=== PATIENT | male | born 1990 | race Caucasian/White ===

== ENCOUNTER 2016-10-30 05:32 | Emergency (ER) | payer OTHER ==
[~2016-10-30] VITALS: Ht 182.9 cm; Wt 122.5 kg
[2016-10-30 05:36] VITALS: Ht 182.9 cm; Wt 122.5 kg
[2016-10-30] MEDS ORDERED: ONDANSETRON 4 MG INJ IV STA ×2 (05:43→08:10)
[2016-10-30] MEDS ORDERED: morphine 4 MG/ML VIAL IV STA (05:43)
[2016-10-30 06:02] LABS: BASOPHILS % 0.4 % (0.0-2.0); EOSINOPHILS # 0.2 10^3/ul (0.0-0.5); EOSINOPHILS % 1.5 % (0.0-7.0); HEMATOCRIT 44.3 % (42.0-52.0); HEMOGLOBIN 15.1 g/dl (14.0-18.0); LYMPHOCYTES # 1.6 10^3/ul (0.8-2.9); LYMPHOCYTES % 15.3 % (15.0-51.0); MEAN CORPUSCULAR HEMOGLOBIN 28.5 pg (29.0-33.0); MEAN CORPUSCULAR HGB CONC 34.1 g/dl (32.0-37.0); MEAN CORPUSCULAR VOLUME 83.5 fl (82.0-101.0); MEAN PLATELET VOLUME 10.1 fl (7.4-10.4); MONOCYTE # 0.5 10^3/ul (0.3-0.9); NEUTROPHILS % 77.8 % (39.0-77.0); PLATELET COUNT 193 10^3/UL (140-440); RED CELL DISTRIBUTION WIDTH 13.8 % (11.5-14.5); UNCORRECTED WBC 10.2 10^3/ul (4.8-10.8); WHITE BLOOD COUNT 10.2 10^3/ul (4.8-10.8)
[2016-10-30 06:09] LABS: CONDITION 1
[2016-10-30 06:11] LABS: ALBUMIN 4.6 g/dl (3.3-4.9)
[2016-10-30 06:12] LABS: POTASSIUM 4.3 mmol/L (3.5-5.1)
[2016-10-30 06:14] LABS: ALBUMIN/GLOBULIN RATIO 0.95; BILIRUBIN,INDIRECT 0.2 mg/dl (0-1.1); BILIRUBIN,TOTAL 0.2 mg/dl (0.2-1.3); CALCIUM 9.5 mg/dl (8.4-10.2); CREATININE 0.89 mg/dl (0.61-1.24); TOTAL PROTEIN 9.4 g/dl (6.1-8.1)
[2016-10-30] MEDS ORDERED: SOD CHLORIDE 0.9% 500 ML IV ONE (06:17)
[2016-10-30] MEDS ORDERED: KETOROLAC 30 MG INJ IV ONE (06:22)
--- NOTE | 2016-10-30 06:28 | ERD ---
ER Documentation Chief Complaint Date/Time DATE: 10/30/16 TIME: 06:23 Chief Complaint upper abd pain radaiting to back since 4 hours ago HPI This is a 26-year-old male that presents to the emergency department complaining of a sudden onset of right flank pain that began 6 hours prior to arrival. The patient stated he was sleeping when he awoke at 1 AM and developed a sharp stabbing pain in the right flank region. He indicates that the pain did not radiate to the right lower quadrant but did begin to radiate to the right upper quadrant. He felt nauseous but did not experience any emesis. He states the pain was 10 out of 10 in intensity. He took 500 mg of Tylenol with no improvement of his pain. He denies any gross hematuria and no frequency urgency or dysuria. He has never had any similar pain in the past denies any recent remote blunt or penetrating abdominal wall trauma. He denies a headache. He has had no fever shaking or chills. He denies any chest pain or pressure that radiates to the neck arm back or jaw. He denies any constipation or diarrhea ROS All systems reviewed and are negative except as per history of present illness. Medications Home Meds Active Scripts Tamsulosin Hcl* (Flomax*) 0.4 Mg Cap.er.24h, 0.4 MG PO BID, #10 CAP Prov:GEETHA TRAN 10/30/16 Hydrocodone/Acetaminophen ([place] 5-325 Tablet) 1 Each Tablet, 1 EACH PO Q6, #20 TAB Prov:GEEHTA TRAN 10/30/16 Ibuprofen* (Motrin*) 800 Mg Tab, 800 MG PO Q6H Y for PAIN AND OR ELEVATED TEMP, #30 TAB Prov:GEETHA TRAN 10/30/16 Ciprofloxacin Hcl* (Ciprofloxacin Hcl*) 500 Mg Tablet, 500 MG PO BID for 7 Days , TAB Prov:GEETHA TRAN 10/30/16 Allergies Allergies: Coded Allergies: No Known Allergy (Unverified , 10/30/16) PMhx/Soc Medical and Surgical Hx: pt denies Medical Hx, pt denies Surgical Hx Hx Alcohol Use: Yes (sometimes) Hx Substance Use: No Hx Tobacco Use: Yes (sometimes) Smoking Status: Current some day smoker Physical Exam Vitals Vital Signs Date Time Temp Pulse Resp B/P Pulse Ox O2 Delivery O2 Flow Rate FiO2 10/30/16 06:50 98.2 73 16 128/81 96 Room Air 10/30/16 05:36 98.3 83 20 156/72 98 Physical Exam Constitutional:Well-developed. Well-nourished. HEENT:Normocephalic. Atraumatic.Pupils were equal round reactive to light. Moist mucous membranes.No tonsillar exudates. Neck: No nuchal rigidity. No lymphadenopathy. No posterior cervical spine tenderness or step-offs. Respiratory: Not using accessory muscles of respiration.Lungs were clear to auscultation bilaterally. No rhonchi. No rales. No wheezing. Cardiovascular: Regular rate regular rhythm.No murmurs. No rubs were appreciated.S1, S2 normal. Distal pulses are palpable 2+ bilaterally. GI: Abdomen was soft. Right CVA tenderness with no tenderness in the right lower quadrant over McBurney's point. Psoas sign negative. Obturator sign negative. Negative Fairbanks sign as there is no reproducible tenderness in the right upper quadrant. Non Distended. No pulsatile abdominal masses or bruits. No rebound. No guarding. Bowel sounds were present and normal. Muscle skeletal: Full range of motion of both the upper and lower extremities bilaterally.Normal muscle tone.No assymetrical calf tenderness or swelling. Skin: No petechia, no purpura. No lesions on the palms or the soles of the feet. No maculopapular rash. NEURO: Patient was alert, awake, orientated x3.No facial droop. Gait observed and normal with no ataxia.Speech had regular rate and rhythm. No focal neurological deficits. Result Diagram: 10/30/1643 10/30/1643 Results 24 hrs Laboratory Tests Test 10/30/16 05:43 Alanine Aminotransferase (ALT/SGPT) 223IU/L Albumin 4.6g/dl Albumin/Globulin Ratio 0.95 Alkaline Phosphatase 100IU/L Anion Gap 17 Aspartate Amino Transf (AST/SGOT) 101IU/L Basophils # 0.010^3/ul Basophils % 0.4% Blood Morphology Comment Blood Urea Nitrogen 8mg/dl Calcium Level 9.5mg/dl Carbon Dioxide Level 29mmol/L Chloride Level 102mmol/L Creatinine 0.89mg/dl Direct Bilirubin 0.00mg/dl Eosinophils # 0.210^3/ul Eosinophils % 1.5% Globulin 4.80g/dl Glucose Level 136mg/dl Hematocrit 44.3% Hemoglobin 15.1g/dl Indirect Bilirubin 0.2mg/dl Lipase 82U/L Lymphocytes # 1.610^3/ul Lymphocytes % 15.3% Mean Corpuscular Hemoglobin 28.5pg Mean Corpuscular Hemoglobin Concent 34.1g/dl Mean Corpuscular Volume 83.5fl Mean Platelet Volume 10.1fl Monocytes # 0.510^3/ul Monocytes % 5.0% Neutrophils # 8.010^3/ul Neutrophils % 77.8% Nucleated Red Blood Cells # 0.010^3/ul Nucleated Red Blood Cells % 0.0/100WBC Platelet Count 43151^3/UL Potassium Level 4.3mmol/L Red Blood Count 5.3010^6/ul Red Cell Distribution Width 13.8% Sodium Level 144mmol/L Total Bilirubin 0.2mg/dl Total Protein 9.4g/dl White Blood Count 10.210^3/ul Current Medications Medications (Trade) Dose Ordered Sig/Dean Route PRN Reason Start Time Stop Time Status Last Admin Dose Admin Morphine Sulfate (morphine) 4 mg ONCE STAT IV 10/30/16 05:43 10/30/16 05:44 DC 10/30/16 05:46 Ondansetron HCl 4 mg 4 mg ONCE STAT IV 10/30/16 05:43 10/30/16 05:44 DC 10/30/16 05:46 Sodium Chloride (NS) 500 ml @ 500 mls/hr Q1H ONCE IV 10/30/16 06:17 10/30/16 07:16 DC 10/30/16 06:45 Ketorolac Tromethamine (Toradol) 30 mg ONCE ONCE IV 10/30/16 06:22 10/30/16 06:23 DC Hydromorphone HCl (Dilaudid) 1 mg ONCE STAT IV 10/30/16 08:10 10/30/16 08:11 DC Ondansetron HCl (Zofran Inj) 4 mg ONCE STAT IV 10/30/16 08:10 10/30/16 08:11 DC Tamsulosin HCl (Flomax) 0.4 mg ONCE ONCE PO 10/30/16 08:30 10/30/16 08:31 Procedures/MDM This patient presented to the emergency department with abdominal pain and right flank pain. He was seen and evaluated by myself. My differential diagnosis included but was not limited to abdominal aortic aneurysm, appendicitis, pancreatitis, perforated peptic ulcer, perforated viscus, Boerhaaves syndrome or visceral pain such as diverticulitis, DKA, esophagitis, hepatitis or bowel obstruction. 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 The patient received intravenous morphine Toradol Zofran as well as a liter bolus of 0.9 normal saline. His pain is completely resolved at this time. I obtained a CT scan of the abdomen without contrast and the patient had a 2 mm kidney stone present on the right side. There is no evidence of obstructive uropathy. The patient's pain is completely resolved after receiving opiate analgesics Flomax and IV fluids. The patient felt comfortable being discharged home with analgesic medication and prophylactic antibiotics which included ciprofloxacin. The patient was discharged home in fair condition. They were instructed to return to the emergency department at any time if there was any worsening of their condition. The patient stated they would follow up with their PCP in the next 24-48 hours to initiate a suitable medication regimen under the care of their PCP as well as to allow their PCP to monitor any drug reactions. The patient was discharged home with prescriptions after they gave informed consent to the new medication. They were also fully informed by myself on the adverse effects and adverse drug interactions in order to provide adequate safeguards to prevent possible adverse reactions to medications. Departure Diagnosis: Primary Impression: Nephrolithiasis Condition: Marian TRANGEETHA Oct 30, 2016 06:27
--- NOTE | 2016-10-30 07:50 | RADRPT ---
PROCEDURE: CT of the abdomen and pelvis without contrast CLINICAL INDICATION: Abdominal Pain. TECHNIQUE: Spiral CT images through the abdomen and pelvis without the use of contrast. The admin istered radiation dose is CTDI 23.21 and DLP 1640.89. One or more of the following dose reduction t echniques were used: automated exposure control, adjustment of the mA and/or kV according to patient size, or use of iterative reconstruction technique. COMPARISON: None FINDINGS: Lack of oral and intravenous contrast somewhat limits evaluation. Slight dependent atelectasis of the lung bases is seen. No pleural effusion is seen. There is diffuse low attenuation of the liver consistent with hepatic steatosis. The gallbladder is mildly distended. No biliary or pancreatic ductal dilatation is seen. No definite focal liver les ions. The spleen, adrenals, left kidney, and pancreas are unremarkable in appearance. There is a 2 mm stone in the proximal right ureter at the L4 level. Minimal right pelvicaliectasis and ureterec tasis is seen without significant perinephric stranding. There is minimal periureteric stranding. No other stones are seen in the kidneys, ureters, or bladder.. . There is no evidence for bowel ob struction, free air, or abscess. The appendix is normal in appearance. small bilateral fat-contain ing inguinal hernias. The prostate is normal in size. No adenopathy or ascites is seen. No bony a bnormality is seen.. IMPRESSION: 2 mm right ureter stone at the L4 level with minimal pelvicaliectasis and ureterectasis and minimal periureteric stranding. Diffuse hepatic steatosis.. RPTAT: [facility] Physician Jun Date Time Electronically viewed and signed by Physician Jun on 10/30/2016 07:50 FREDDIE/
[2016-10-30] MEDS ORDERED: HYDROmorphONE 1 MG/ML SYG IV STA (08:10)
[2016-10-30] MEDS ORDERED: IBUP800T25 PO (08:23)
[2016-10-30] MEDS ORDERED: TAMS-14 PO (08:23)
[2016-10-30] MEDS ORDERED: HYDR-906 PO (08:23)
[2016-10-30] MEDS ORDERED: CIPR500T4 PO (08:23)
[2016-10-30] MEDS ORDERED: TAMSULOSIN (SR) 0.4 MG CAP PO ONE (08:30)
[2016-10-30 09:12] LABS: ADD UMIC YES; URINE BILIRUBIN (Dip) NEGATIVE (NEGATIVE); URINE BLOOD (Dip) 3+ (NEGATIVE); URINE COLOR LT. YELLOW (YELLOW); URINE GLUCOSE (Dip) NEGATIVE (NEGATIVE); URINE KETONES (Dip) NEGATIVE (NEGATIVE); URINE LEUKOCYTE ESTERASE (Dip) NEGATIVE (NEGATIVE); URINE NITRITE (Dip) NEGATIVE (NEGATIVE); URINE TOTAL PROTEIN (Dip) TRACE (NEGATIVE); URINE UROBILINOGEN (Dip) 0.2 E.U./dL (0.1-1.0)
[2016-10-30 09:22] LABS: BACTERIA,URINE FEW; MUCUS,URINE FEW; URINE RBCS >50 /HPF (0)
[2016-10-30 09:45] VITALS: BP 124/72; PULSE 69; RESP 16; TEMP 98.4
== END 2016-10-30 09:45 | disposition home or self-care (01) ==
LOC: E/R 05:32
DX: N20.0 Calculus of kidney (principal); F17.210 Nicotine dependence, cigarettes, uncomplicated
CPT/HCPCS: 36415; 74176; 80053; 81001; 83690; 85025; 96361; 96374; 96375; 96376; J1170; J1885; J2270; J2405; J7040; Z7502; Z7610; 81003

== ENCOUNTER 2018-10-20 19:57 | Emergency (ER) | payer OTHER ==
[~2018-10-20] VITALS: Wt 118.8 kg
[~2018-10-20 19:57] MED LIST: CIPR500T4 PO; HYDR-4011 PO; IBUP800T48 PO; TAMS-14 PO
[2018-10-20 20:10] VITALS: BP 159/94; PULSE 67; RESP 18
[2018-10-20] MEDS ORDERED: KETOROLAC 30 MG INJ IM STA (21:26)
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
[2018-10-20] MEDS ORDERED: CYCL10TA7 PO (22:54)
[2018-10-20] MEDS ORDERED: IBUP800T48 PO (22:54)
== END 2018-10-20 23:05 | disposition home or self-care (01) ==
LOC: FTE 19:57
DX: S39.92XA Unspecified injury of lower back, initial encounter (principal); J45.909 Unspecified asthma, uncomplicated; T14.8XXA Other injury of unspecified body region, initial encounter; M62.838 Other muscle spasm; F17.210 Nicotine dependence, cigarettes, uncomplicated; V43.52XA Car driver injured in collision with other type car in traffic accident, initial encounter
CPT/HCPCS: 71046; 72040; 72100; 96372; J1885; Z7502